=== PATIENT | male | born 1965 | race Caucasian/White ===

== ENCOUNTER 2019-06-16 10:03 | Emergency (ER) | payer BC, OTHER ==
--- NOTE | 2019-06-16 10:35 | ED ---
Head Injury - HPI Summary HPI Summary: This pt is a 54 y/o male presenting to [facility] c/o right sided headache, dizziness , and nausea s/p head strike today. 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 Denies LOC. He notes he felt a little unsteady earlier but this has resolved since then. Pt states his legs are weak now. Denies numbness or tingling in LE or UE, weakness in UE. He reports hx of chronic neck pain, unchanged since his head strike today. PMHx: seizure disorder, asthma. Pt takes medication for seizures. He does not take anticoagulants. - History Of Current Complaint Chief Complaint: EDHeadInjury Stated Complaint: HEAD INJ/WEAK/SHAKY PER PT Time Seen by Provider: 06/16/19 10:17 Hx Obtained From: Patient Mechanism Of Injury: Blunt Trauma Onset/Duration: Started Minutes Ago, Still Present Severity Currently: Moderate Pain Intensity: 1 Pain Scale Used: 0-10 Numeric Location of Head Injury: Diffuse Aggravating Factor(s): Other: - nothing Alleviating Factor(s): Other: - nothing Associated Signs And Symptoms: Nausea, Headache, Other: - POSITIVE: diziness, weakness in legs. NEGATIVE: vomiting, numbness or tingling in UE or LE, weakness in UE. - Allergies/Home Medications Allergies/Adverse Reactions: Allergies Allergy/AdvReac Type Severity Reaction Status Date / Time levofloxacin [From Levaquin] Allergy See Comment Verified 06/16/19 10:20 BENADRYL Allergy See Comment Uncoded 06/16/19 10:20 PMH/Surg Hx/FS Hx/Imm Hx Endocrine/Hematology History: Denies: Hx Diabetes Cardiovascular History: Denies: Hx Hypertension, Hx Pacemaker/ICD Respiratory History: Reports: Hx Asthma, Hx Sleep Apnea - KAYLIE Sensory History: Denies: Hx Hearing Aid Neurological History: Reports: Hx Seizures Psychiatric History: Reports: Hx Depression Denies: Hx Panic Disorder - Surgical History Surgical History: Yes Surgery Procedure, Year, and Place: UVULA REMOVAL AND PHARYNGEAL EXPANSION, SEPTOPLASTY, RIGHT THUMB TENDON REPAIR, LEFT HERNIA REPAIR, GALLBLADDER, TONSILS AND ADENOIDS Infectious Disease History: No Infectious Disease History: Reports: Traveled Outside the [place] in Last 30 Days - Family History Known Family History: Positive: Cardiac Disease Family History: Uncle: CABG - Social History Alcohol Use: None Hx Substance Use: No Substance Use Type: Reports: None Substance Use Comment - Amount & Last Used: chewing tobacco Hx Tobacco Use: No Smoking Status (MU): Never Smoked Tobacco Review of Systems Negative: Fever, Chills Positive: Nausea. Negative: Vomiting Neurological: Other - POSITIVE: dizziness Positive: Headache, Weakness - legs. Negative: Paresthesia, Numbness All Other Systems Reviewed And Are Negative: Yes Physical Exam - Summary Physical Exam Summary: Appearance: Well appearing, no pain distress Skin: warm, dry, reflects adequate perfusion Head/face: normal Eyes: EOMI, EL ENT: normal Neck: supple, non-tender Respiratory: CTA, breath sounds present Cardiovascular: RRR, pulses symmetrical Abdomen: non-tender, soft Musculoskeletal: normal, strength/ROM intact Neuro: normal, sensory motor intact, A&Ox3 Triage Information Reviewed: Yes Vital Signs On Initial Exam: Initial Vitals Temp Pulse Resp BP Pulse Ox 97.3 F 62 16 136/77 98 06/16/19 10:05 06/16/19 10:05 06/16/19 10:05 06/16/19 10:05 06/16/19 10:05 Vital Signs Reviewed: Yes - Beattie Coma Scale Best Eye Response: 4 - Spontaneous Best Motor Response: 6 - Obeys Commands Best Verbal Response: 5 - Oriented Coma Scale Total: 15 Diagnostics - Vital Signs Vital Signs Temp Pulse Resp BP Pulse Ox 06/16/19 10:05 97.3 F 62 16 136/77 98 - Laboratory Lab Statement: Any lab studies that have been ordered have been reviewed, and results considered in the medical decision making process. - CT Brain CT CT Interpretation Completed By: Radiologist Summary of CT Findings: IMPRESSION: No acute intracranial pathology. Dr. Freed has reviewed this report. Re-Evaluation - Re-Evaluation First Eval Re-Evaluation Time: 11:51 Comment: Reviewed CT results with pt. He will be discharged home. Head Injury Course/Dx Assessment/Plan: Pt is a 54 y/o male presenting to [facility] c/o headache, dizziness , and nausea s/p head strike today. 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 No LOC. No anticoagulants. Brain CT IMPRESSION: No acute intracranial pathology. Reviewed results with the patient. He will be discharged home with follow up from his PCP in 3 days. Pt was instructed to return to the ED for any worsening or new symptoms. - Diagnoses Provider Diagnoses: Head injury Discharge - Sign-Out/Discharge Documenting (check all that apply): Patient Departure - Discharge home Patient Received Moderate/Deep Sedation with Procedure: No - Discharge Plan Condition: Stable Disposition: HOME Patient Education Materials: Head Injury (ED) Forms: *Work Release Referrals: Chaka Everett, [Primary Care Provider] - Additional Instructions: Please follow up with your primary care provider in 3 days. RETURN TO THE ED FOR ANY NEW OR WORSENING SYMPTOMS. - Attestation Statements Document Initiated by Scribe: Yes Documenting Scribe: Lilia Luke Provider For Whom Scribe is Documenting (Include Credential): Hima Freed MD Scribe Attestation: Lilia Singleton, scribed for Hima Freed MD on 06/16/19 at 1153. Status of Scribe Document: Ready
[2019-06-16 12:09] VITALS: BP 112/73
== END 2019-06-16 12:09 | disposition home or self-care (01) ==
LOC: ED 10:03
DX: S09.90XA Unspecified injury of head, initial encounter (principal); W22.8XXA Striking against or struck by other objects, initial encounter; Y92.238 Other place in hospital as the place of occurrence of the external cause; Y99.0 Civilian activity done for income or pay; M62.81 Muscle weakness (generalized); R42 Dizziness and giddiness; R11.0 Nausea; Z88.1 Allergy status to other antibiotic agents; Z88.8 Allergy status to other drugs, medicaments and biological substances
CPT/HCPCS: 70450; 99283

== ENCOUNTER 2019-12-02 09:38 | Emergency (ER) | payer BC ==
--- NOTE | 2019-12-02 10:19 | ED ---
GI/ HPI - HPI Summary HPI Summary: This pt is a 54 y/o male presenting to [facility] c/o right sided flank pain since approximately 0845 today. Pt reports he has hx of kidney stones and has been following up with Dr. Chatman, urologist. He states last week he was at Dr. Chatman' s office and was told he had 2 kidney stones left but that they had become smaller. Pt notes this morning he began to have sudden pain on his right flank. He describes right flank pain radiating into right abdomen. At onset he rates his pain 10/10 in severity with associated symptoms of nausea. Currently he rates his pain 7/10 in severity. Denies fever, vomiting, chest pain. PMHx: asthma, seizures, sleep apnea. Denies tobacco, drug, or alcohol use. Allergies to Levofloxacin and Benadryl. - History of Current Complaint Chief Complaint: EDFlankPain Time Seen by Provider: 12/02/19 10:15 Stated Complaint: FLANK PAIN PER PT Hx Obtained From: Patient Onset/Duration: Started Minutes Ago, Still Present Timing: Lasting Minutes Severity: Severe Current Severity: Moderate Pain Intensity: 7 Location of Pain: Flank - right Associated Signs and Symptoms: Positive: Nausea, Flank Pain - right. Negative: Vomiting, Fever, Chills, Chest Pain Aggravating Factor(s): Nothing Alleviating Factor(s): Nothing - Additional Pertinent History Primary Care Physician: Erlinda - Allergy/Home Medications Allergies/Adverse Reactions: Allergies Allergy/AdvReac Type Severity Reaction Status Date / Time levofloxacin [From Levaquin] Allergy See Comment Verified 06/16/19 10:20 BENADRYL Allergy See Comment Uncoded 06/16/19 10:20 Home Medications: Home Medications ALPRAZolam TAB* [Xanax TAB*] 0.25 mg PO TID PRN 12/02/19 [History Confirmed ] Alfuzosin ER (NF) [Uroxatral (NF)] 10 mg PO DAILY 12/02/19 [History Confirmed ] Budesonide/Formote 80/4.5(NF) [Symbicort 80/4.5 (NF)] 2 puff INH BID 12/02/19 [ History Confirmed 12/02/19] Lamotrigine XR (NF) [Lamictal XR (NF)] 200 mg PO BID 12/02/19 [History Confirmed 12/02/19] LoraTADine TAB(NF) [Claritin 10 MG TAB(NF)] 10 mg PO DAILY 12/02/19 [History Confirmed 12/02/19] Berkey-3 Fatty Acids (Nf) [Fish Oil (NF)] 1,200 mg PO BID 12/02/19 [History Confirmed 12/02/19] PMH/Surg Hx/FS Hx/Imm Hx Endocrine/Hematology History: Denies: Hx Diabetes Cardiovascular History: Denies: Hx Hypertension, Hx Pacemaker/ICD Respiratory History: Reports: Hx Asthma, Hx Sleep Apnea - KAYLIE Sensory History: Denies: Hx Hearing Aid Neurological History: Reports: Hx Seizures Psychiatric History: Reports: Hx Depression Denies: Hx Panic Disorder - Surgical History Surgical History: Yes Surgery Procedure, Year, and Place: UVULA REMOVAL AND PHARYNGEAL EXPANSION, SEPTOPLASTY, RIGHT THUMB TENDON REPAIR, LEFT HERNIA REPAIR, GALLBLADDER, TONSILS AND ADENOIDS Infectious Disease History: No Infectious Disease History: Denies: Traveled Outside the [place] in Last 30 Days - Family History Known Family History: Positive: Cardiac Disease Family History: Uncle: CABG - Social History Alcohol Use: None Hx Substance Use: No Substance Use Type: Reports: None Substance Use Comment - Amount & Last Used: chewing tobacco Hx Tobacco Use: No Smoking Status (MU): Never Smoked Tobacco Review of Systems Negative: Fever Negative: Chest Pain Positive: Nausea. Negative: Vomiting Positive: flank pain - right All Other Systems Reviewed And Are Negative: Yes Physical Exam - Summary Physical Exam Summary: VITAL SIGNS: Reviewed. GENERAL: Patient is a well-developed and nourished male. Patient is anxious secondary to pain. Patient is not in any acute respiratory distress. HEAD AND FACE: No signs of trauma. No ecchymosis, hematomas or skull depressions. No sinus tenderness. EYES: PERRLA, EOMI x 2, No injected conjunctiva, no nystagmus. EARS: Hearing grossly intact. Ear canals and tympanic membranes are within normal limits. MOUTH: Oropharynx within normal limits. NECK: Supple, trachea is midline, no adenopathy, no JVD, no carotid bruit, no c- spine tenderness, neck with full ROM. CHEST: Symmetric, no tenderness at palpation LUNGS: Clear to auscultation bilaterally. No wheezing or crackles. CVS: Regular rate and rhythm, S1 and S2 present, no murmurs or gallops appreciated. ABDOMEN: Soft, non-tender. No signs of distention. No rebound, no guarding, and no masses palpated. Bowel sounds are normal. Right costovertebral angle tenderness. EXTREMITIES: FROM in all major joints, no edema, no cyanosis or clubbing. NEURO: Alert and oriented x 3. No acute neurological deficits. Speech is normal and follows commands. SKIN: Dry and warm Triage Information Reviewed: Yes Vital Signs On Initial Exam: Initial Vitals Temp Pulse Resp BP Pulse Ox 97.6 F 97 18 157/81 95 12/02/19 09:42 12/02/19 09:42 12/02/19 09:42 12/02/19 09:42 12/02/19 09:42 Vital Signs Reviewed: Yes Procedures - Sedation Patient Received Moderate/Deep Sedation with Procedure: No Diagnostics - Vital Signs Vital Signs Temp Pulse Resp BP Pulse Ox 12/02/19 09:42 97.6 F 97 18 157/81 95 - Laboratory Result Diagrams: 12/02/19 10:30 12/02/19 10:30 Lab Statement: Any lab studies that have been ordered have been reviewed, and results considered in the medical decision making process. - CT CT abdomen/pelvis CT Interpretation Completed By: Radiologist Summary of CT Findings: IMPRESSION: 1. There is a 2.5 mm calculus at the right ureterovesical junction causing mild hydronephrosis. 2. Additional 3 mm nonobstructing right renal calculus. 3. Status post cholecystectomy. 4. Enlarged prostate gland. Dr. Jewell has reviewed this report. Re-Evaluation - Re-Evaluation First Eval Re-Evaluation Time: 12:56 Comment: Dr. Chatman, urologist, at bedside. Second Eval Re-Evaluation Time: 14:57 Comment: Patient is pain free. GIGU Course/Dx - Course Assessment/Plan: This pt is a 54 y/o male presenting to [facility] c/o right sided flank pain since approximately 0845 today. Pt reports he has hx of kidney stones and has been following up with Dr. Chatman, urologist. He states last week he was at Dr. Chatman's office and was told he had 2 kidney stones left but that they had become smaller. Pt notes this morning he began to have sudden pain on his right flank. He describes right flank pain radiating into right abdomen. At onset he rates his pain 10/10 in severity with associated symptoms of nausea. Currently he rates his pain 7/10 in severity. Denies fever, vomiting, chest pain. PMHx: asthma, seizures, sleep apnea. Denies tobacco, drug, or alcohol use. Allergies to Levofloxacin and Benadryl. Initially patient was given NS and Toradol for the flank pain. Blood work without a significant abnormality except for creatinine 1.25, calcium 10.4. Urinalysis is negative for UTI. Abdominal/pelvic CT impression: There is a 2.5 mm calculus at the right ureterovesicular junction causing mild hydronephrosis. Additional 3 mm nonobstructing right renal calculus. In the ED course the patient was given 2 doses of morphine, 2 doses of fentanyl IV fluids and the symptoms have improved. At this time the patient is asymptomatic. I discussed my physical exam and findings with Dr. Chatman from urology and he recommends for the patient to be discharged home with Percocet and follow-up at his office. Patient is hemodynamically stable, alert and oriented 3. - Diagnoses Provider Diagnoses: Ureterolithiasis, Renal colic on right side, Kidney stone on right side - Physician Notifications Discussed Care Of Patient With: Bright Chatman Time Discussed With Above Provider: 12:36 Instructed by Provider To: Other - Discussed with Dr. Chatman, urologist, who will come see patient. Discharge ED - Sign-Out/Discharge Documenting (check all that apply): Patient Departure - Discharge home - Discharge Plan Condition: Stable Disposition: HOME Prescriptions: oxyCODONE/Acetamin 5/325 MG* [Percocet 5/325 TAB*] 1 tab PO Q6H PRN #12 tab MDD 4 PRN Reason: Pain - Moderate Patient Education Materials: Kidney Stones (ED) Referrals: Chaka Everett DO [Primary Care Provider] - Bright Chatman MD [Medical Doctor] - Additional Instructions: FOLLOW UP WITH YOUR PRIMARY CARE PROVIDER IN 2-3 DAYS. Also follow up with Dr. Chatman, urologist. RETURN TO THE ED FOR ANY NEW OR WORSENING SYMPTOMS. - Billing Disposition and Condition Condition: STABLE Disposition: Home - Attestation Statements Document Initiated by Scribe: Yes Documenting Scribe: Lilia Luke Provider For Whom Scribe is Documenting (Include Credential): Chuy Jewell MD Scribe Attestation: I, Lilia Luke, scribed for Chuy Jewell MD on 12/02/19 at 2141. Scribe Documentation Reviewed: Yes Provider Attestation: The documentation as recorded by the billibLilia bee accurately reflects the service I personally performed and the decisions made by me, Chuy Jewell MD Status of Scribe Document: Viewed
[2019-12-02] MEDS ORDERED: Ketorolac INJ* 30 MG/ML 1 ML VIAL IV ONE (10:20)
[2019-12-02] MEDS ORDERED: NS 0.9% 1000 ML** 1,000 ML IV ONE ×2 (10:20→12:23)
[2019-12-02 10:39] LABS: ABS Basophils 0.1 10^3/ul (0-0.2); ABS Eosinophils 0.1 10^3/ul (0-0.6); ABS Lymphocytes 1.3 10^3/ul (1.0-4.8); ABS Monocytes 0.5 10^3/ul (0-0.8); ABS Neutrophils 3.2 10^3/ul (1.5-7.7); Eosinophil % 1.9 %; Hematocrit 43 % (42-52); Hemoglobin 14.8 g/dL (14.0-18.0); Lymphocyte % 24.9 %; Mean Corpuscular HGB Conc 35 g/dL (31-36); Mean Corpuscular Hemoglobin 30 pg (27-31); Mean Corpuscular Volume 85 fL (80-94); Mean Platelet Volume 8.6 fL (7.4-10.4); Platelet Count 203 10^3/uL (150-450); Red Blood Count 4.99 10^6 /uL (4.18-5.48); Red Cell Distribution Width 14 % (10-15); White Blood Count 5.1 10^3/uL (3.5-10.8)
[2019-12-02 11:03] LABS: ALT 20 U/L (7-52); AST 22 U/L (13-39); Albumin/Globulin Ratio 2.1 (1-3); Alkaline Phosphatase 44 U/L (34-104); Anion Gap 8 mmol/L (2-11); BUN/Creatinine Ratio 13.6 (8-20); Blood Urea Nitrogen 17 mg/dL (6-24); C Reactive Protein < 1.00 mg/L (<8.01); CO2 Carbon Dioxide 27 mmol/L (22-32); Calcium 10.4 mg/dL (8.6-10.3); Chloride 104 mmol/L (101-111); EGFR African American 72.6 (>60); Globulin 2.4 g/dL (2-4); Glucose 90 mg/dL (70-100); Potassium 4.1 mmol/L (3.5-5.0); Sodium 139 mmol/L (135-145); Total Protein 7.4 g/dL (6.4-8.9)
[2019-12-02 11:12] LABS: Urine Appearance Clear; Urine Bilirubin Negative (Negative); Urine Blood 3+ (Negative); Urine Color Yellow; Urine Glucose Negative (Negative); Urine Ketones Negative (Negative); Urine Nitrite Negative (Negative); Urine Protein Negative (Negative); Urine Specific Gravity 1.012 (1.010-1.030); Urine Urobilinogen Negative (Negative)
[2019-12-02 11:15] LABS: Urine Bacteria Absent (Absent); Urine Red Blood Cell 3+(>10/hpf) (Absent); Urine White Blood Cell Trace(0-5/hpf) (Absent)
[2019-12-02] MEDS ORDERED: Morphine 4 MG/ML VIAL (1 ml) 4 MG/ML VIAL IV ONE ×2 (11:16→11:52)
[2019-12-02] MEDS ORDERED: fentaNYL* 50 MCG/ML 2 ML VIAL (100 MCG VIAL) IV SLOW PU ONE ×2 (12:22→13:31)
[2019-12-02] MEDS ORDERED: Ondansetron INJ* 2 MG/ML VIAL IV ONE ×2 (12:22→13:32)
--- NOTE | 2019-12-02 15:32 | CONS ---
UROLOGY CONSULTATION: DATE OF CONSULT: 12/02/19 REQUESTING PHYSICIAN: Dr. Jewell in the emergency department. DIAGNOSES: 1. Calculus, right ureter. 2. Right hydronephrosis. 3. Calculus, right kidney. 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 He had had some ill-defined pain over the last few days, which got severe earlier this morning and be came localized to the right flank. He has also had increased urinary frequency over the last year or 2 progressively getting worse and I had actually seen him in my office a few weeks ago for the incre ased frequency and prescribed alfuzosin 10 mg daily for that. In the emergency department, a CT scan was obtained, which revealed a fairly small 2 mm calculus in the area of the right distal ureter wit h an additional 3 mm calculus in the right kidney. PAST MEDICAL HISTORY: Significant for: 1. Asthma. 2. 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 PAST SURGICAL HISTORY: Significant for left inguinal hernia repair, left ureteroscopy in 2016, right thumb surgery, septoplasty, uvulopalatoplasty, tonsillectomy, cholecystectomy, and vasectomy. MEDICATIONS ON ADMISSION: 1. Xanax 0.25 mg t.i.d. p.r.n. 2. Alfuzosin 10 mg daily. 3. Symbicort 2 puffs inhaler b.i.d. 4. Lamictal XR 200 mg b.i.d. 5. Claritin 10 mg daily. 6. Fish oil. ALLERGIES AND INTOLERANCES: LEVAQUIN and BENADRYL. FAMILY HISTORY: Negative for stones. SOCIAL HISTORY: Smoking history: He is a nonsmoker. REVIEW OF SYSTEMS: He denies any chest pain or shortness of breath. There is no history of diabetes mellitus or any other major systemic illness. PHYSICAL EXAM: Reveals a pleasant, healthy-appearing, middle-aged gentleman. Blood pressure is 157/8 1, pulse 97 per minute, temperature 97.6, oxygen saturation 95% on room air. Cardiovascular Exam: R egular rate and rhythm. S1, S2. Lungs are clear bilaterally. Abdomen is soft with right flank tend erness. LABORATORY DATA: Review of labs reveals a white count of 5.1, hemoglobin and hematocrit are normal a t 14.8 and 43. BUN and creatinine are 17 and 1.25 respectively. IMPRESSION AND PLAN: I reviewed the CT scan myself and had a detailed discussion with Mirza and booker maier with Dr. Jewell regarding the management. Since the stone is fairly small and is distal, I think it is highly likely that this should pass spon taneously. He is already on an alpha candy, so I think he can be managed as an outpatient with hyd ration and oral analgesics and I have instructed him to call me for a followup. I have also instruct ed him to call me if he has a temperature greater than 101 or uncontrolled pain or vomiting. [id number]/[facility] #: [id number]
[2019-12-02 15:54] VITALS: BP 122/82
== END 2019-12-02 15:56 | disposition home or self-care (01) ==
LOC: ED 09:38
DX: N13.2 Hydronephrosis with renal and ureteral calculous obstruction (principal); N40.0 Benign prostatic hyperplasia without lower urinary tract symptoms; R11.0 Nausea; J45.909 Unspecified asthma, uncomplicated; G40.909 Epilepsy, unspecified, not intractable, without status epilepticus; Z88.1 Allergy status to other antibiotic agents; Z88.8 Allergy status to other drugs, medicaments and biological substances; F17.220 Nicotine dependence, chewing tobacco, uncomplicated
CPT/HCPCS: 36415; 74176; 80053; 81003; 81015; 83690; 85025; 86140; 87086; 96361; 96374; 96375; 96376; 99282; J1885; J2270; J2405; J3010

== ENCOUNTER 2024-04-06 19:26 | Observation (INO) ==
[2024-04-06 19:56] LABS: ABS Basophils 0.1 10^3/uL (0.0-0.1); ABS Eosinophils 0.1 10^3/uL (0.0-0.5); ABS Lymphocytes 1.4 10^3/uL (1.0-4.8); ABS Monocytes 0.7 10^3/uL (0.0-1.1); ABS Neutrophils 5.6 10^3/uL (1.5-7.6); ABS Nucleated RBC 0.01 10^3/ul; Eosinophil % 1.3 %; Hematocrit 43.3 % (38-53); Hemoglobin 14.9 g/dL (13.2-16.3); Mean Corpuscular Hemoglobin 29.3 pg (27-33); Mean Corpuscular Hgb Conc 34.3 g/dL (31-36); Mean Corpuscular Volume 85.5 fL (80-97); Nucleated Red Blood Cells % 0.1 %/100WBC (0.0-0.8); Platelet Count 257 10^3/uL (150-450); Red Blood Count 5.06 10^6/uL (4.06-5.63); Red Cell Distribution Width 13.8 % (12-17); White Blood Count 7.9 10^3/uL (3.6-10.2)
[2024-04-06 20:45] LABS: Albumin 4.8 g/dL (3.2-5.2); Calcium 10.3 mg/dL (8.6-10.3); Creatinine, Serum 1.63 mg/dL (0.67-1.17); Globulin 2.4 g/dL (2-4); Potassium 4.5 mmol/L (3.5-5.0); Total Bilirubin 0.9 mg/dL (0.2-1.0); Total Protein 7.2 g/dL (6.4-8.9); eGFR CKD-EPI 48.2 (>60)
[2024-04-06] MEDS ORDERED: Ondansetron 4 mg VIAL 2 MG/ML 2 ml VIAL IV PRN (21:03)
[2024-04-06] MEDS ORDERED: Senna TAB 8.6 mg TAB PO PRN (21:03)
[2024-04-06] MEDS ORDERED: Albuterol HFA INHALER 8 gm MDI INH PRN (21:05)
[2024-04-06 21:14] LABS: High Sensitivity Troponin 1 Hr 4 pg/mL (<20)
[2024-04-06] MEDS ORDERED: Nicotine GUM 4MG FRUIT FLAVOR PO PRN (21:15)
[2024-04-06] MEDS: Mometasone/Formoter 100/5 MDI INH SCH (22:10)
[2024-04-06] MEDS: Lactated Ringers 1000 ml BAG 1,000 ML IV SCH (22:40)
[2024-04-07 06:28] LABS: Calcium 9.6 mg/dL (8.6-10.3); Creatinine, Serum 1.48 mg/dL (0.67-1.17); Potassium 4.5 mmol/L (3.5-5.0); eGFR CKD-EPI 54.2 (>60)
[2024-04-07] MEDS ORDERED: Lidocaine 1% w EPI 1:100,000 MDV 20 ML VIAL ONE (14:48)
[2024-04-07] MEDS ORDERED: Midazolam 5 mg/5 ml VIAL 1 mg/ml 5 ml VIAL (5 mg) ONE (15:16)
[2024-04-07] MEDS: Midazolam 10 mg/10 ml VIAL 1 mg/ml 10 ml VIAL (10 mg) IV SLOW PU ONE (15:20)
[2024-04-07 17:53] VITALS: BP 146/94
[2024-04-07] MEDS ORDERED: Fluticasone NASAL SPRAY 50MCG 16 gm SPRAY BTL INTRANASAL SCH (21:00)
[2024-04-07] MEDS ORDERED: Multivitamins/Minerals TAB PO SCH (21:00)
== END 2024-04-07 18:05 | disposition home or self-care (01) ==
LOC: ED 19:26 → EDHOLD 19:26 → SUATTDRO 20:23 → MEDTELE 21:50
PROVIDERS: ADMIT Internal Medicine; ATTEND Student in an Organized Health Care Education/Training Program